=== PATIENT | female | born 1925 | race Caucasian/White ===

== ENCOUNTER → 2016-08-25 | Outpatient (CLI) | payer MEDICARE, BC ==
[~2016-08-25] MED LIST: NAPROSYN375 MG PO; VERAPAMIL
== END ==
LOC: MC.RAD 10:40
DX: Z12.31 Encounter for screening mammogram for malignant neoplasm of breast (principal); Z85.3 Personal history of malignant neoplasm of breast

== ENCOUNTER → 2017-08-30 | Outpatient (CLI) | payer MEDICARE, BC | LOC: MC.RAD 11:18 | DX: Z12.31 Encounter for screening mammogram for malignant neoplasm of breast (principal); D05.10 Intraductal carcinoma in situ of unspecified breast; R92.0 Mammographic microcalcification found on diagnostic imaging of breast ==

== ENCOUNTER → 2017-09-07 | Outpatient (CLI) | payer MEDICARE, BC | LOC: MC.RAD 13:53 | DX: R92.0 Mammographic microcalcification found on diagnostic imaging of breast (principal); Z85.3 Personal history of malignant neoplasm of breast ==

== ENCOUNTER → 2017-09-22 | Outpatient (CLI) | payer MEDICARE, BC | LOC: MC.RAD 08:24 | DX: R92.0 Mammographic microcalcification found on diagnostic imaging of breast (principal); Z85.3 Personal history of malignant neoplasm of breast | CPT/HCPCS: 30634 ==

== ENCOUNTER 2017-10-21 06:50 | Day surgery (SDC) | payer MEDICARE, BC ==
[~2017-10-21] VITALS: Ht 171.4 cm; Wt 62.2 kg
[2017-10-21 08:25] VITALS: BP 137/61; PULSE 74; TEMP 97.1
[2017-10-21] MEDS ORDERED: CALAN120 MG PO (08:30)
[2017-10-21] MEDS ORDERED: VITAMIN D31000 I1 PO (08:31)
[2017-10-21] MEDS ORDERED: PRESERVISION1 SGL PO (08:32)
[2017-10-21] MEDS ORDERED: NORCO 325 MG-51 TAB PO (10:10)
[2017-10-21 10:13] VITALS: BP 131/65; PULSE 72; TEMP 97
[2017-10-21 10:28] VITALS: BP 126/61; PULSE 64
[2017-10-21 10:43] VITALS: BP 120/57; PULSE 67
[2017-10-21 10:58] VITALS: BP 121/88; PULSE 66
[2017-10-21 11:30] VITALS: BP 132/61; PULSE 60
== END 2017-10-21 11:59 | disposition home or self-care (01) ==
LOC: SDCO 06:50
DX: D05.11 Intraductal carcinoma in situ of right breast (principal); Z80.3 Family history of malignant neoplasm of breast
CPT/HCPCS: J0690; J2250; J2405; J2704; J3010; J7120